=== PATIENT | female | born 1980 | race Caucasian/White ===

== ENCOUNTER 2023-05-03 07:26 | Outpatient (CLI) | payer MEDICAID, SELFPAY ==
--- NOTE | 2023-05-03 07:45 | MR_ITS ---
WS: [id number] MRI BRAIN WITH AND WITHOUT CONTRAST HISTORY: SPEECH DISTURBANCE COMPARISON: None available. TECHNIQUE: Multiplanar imaging performed through the brain with MultiHance 20 ml's IV. No acute infarcts are seen. Tucker-white matter differentiation is well preserved. Minimal T2 and FLAIR signal hyperintensities in the subcortical white matter slightly greater on the LEFT than the RIGHT. No prior infarct. No susceptibility artifacts or prior lacunar infarcts. Ventricles and extra-axial spaces are normal. Clivus and pituitary gland are normal. Visualized posterior fossa and brainstem are also normal. Postcontrast images are negative for masses or vascular malformations. Dural venous sinuses are normal. Paranasal sinuses: Well aerated with no significant disease. Mastoid air cells: Normal. Calvarium and scalp: Normal. MR/MR head wo/w con [id number] IMPRESSION: 1. No acute infarct and no intracranial mass. 2. Very minimal microvascular ischemic disease. 3. No hydrocephalus. 4. No significant paranasal sinus disease.
[2023-05-03] MEDS: gadobenate dimeglumine 20 mL vial IV (09:02)
== END 2023-05-03 07:27 | disposition home or self-care (01) ==
PROVIDERS: PCP Physician Assistant; Visit Provider Physician Assistant
DX: R47.9 Unspecified speech disturbances (principal)
CPT/HCPCS: 70553; A9577

== ENCOUNTER 2023-05-05 12:34 | Outpatient (CLI) | payer MEDICAID, SELFPAY ==
--- NOTE | 2023-05-05 13:02 | MM_ITS ---
WS: [email or web address] BILATERAL 3D TOMOSYNTHESIS DIGITAL SCREENING MAMMOGRAPHY WITH CAD CLINICAL INFORMATION: SCREENING HISTORY: Screening mammogram. No current complaints. COMPARISON: Baseline TECHNIQUE: Bilateral CC and MLO views. FINDINGS: Scattered fibroglandular densities bilaterally. No suspicious focal mass, asymmetry, calcifications, or architectural distortion. No evidence of malignancy. Lucent centered calcification RIGHT breast. A few incidental punctate calcifications. MM/[id number] IMPRESSION: BI-RADS: 2-Benign FOLLOW UP: 1 Year Follow-up Recommend return to annual screening mammography.
== END 2023-05-05 12:35 | disposition home or self-care (01) ==
PROVIDERS: PCP Physician Assistant; Visit Provider Physician Assistant
DX: Z12.31 Encounter for screening mammogram for malignant neoplasm of breast (principal)
CPT/HCPCS: 77063; 77067

== ENCOUNTER → 2023-08-09 11:11 | Outpatient (BNVA) | payer MEDICAID, SELFPAY | PROVIDERS: PCP Physician Assistant; Referring Provider Physician Assistant; Visit Provider Internal Medicine Cardiovascular Disease | DX: R07.9 Chest pain, unspecified (principal) | CPT/HCPCS: 93005 ==

== ENCOUNTER 2023-09-12 17:36 | Outpatient (CLI) | payer MEDICAID, SELFPAY ==
[2023-09-12 20:36] LABS: Cortisol Random 11.47 ug/dL (2.47-19.5); T3 Free 2.5 PG/ML (2.0-4.4)
[2023-09-15 08:29] LABS: Thyroid Peroxidase Antobodies <1 IU/mL (<9)
== END 2023-09-12 17:37 | disposition home or self-care (01) ==
PROVIDERS: PCP Physician Assistant; Visit Provider Specialist
DX: G43.711 Chronic migraine without aura, intractable, with status migrainosus (principal); G47.10 Hypersomnia, unspecified; R00.2 Palpitations; R41.3 Other amnesia; E66.9 Obesity, unspecified
CPT/HCPCS: 36415; 82533; 84439; 84481; 86376

== ENCOUNTER → 2023-09-25 12:16 | Outpatient (BNVA) | payer MEDICAID, SELFPAY | PROVIDERS: PCP Physician Assistant; Visit Provider Internal Medicine Rheumatology | DX: M25.50 Pain in unspecified joint (principal); Z79.899 Other long term (current) drug therapy; M54.50 Low back pain, unspecified; R76.8 Other specified abnormal immunological findings in serum; R29.898 Other symptoms and signs involving the musculoskeletal system; G43.711 Chronic migraine without aura, intractable, with status migrainosus | CPT/HCPCS: 36415; 82085; 82310; 82550; 83735; 84100; 84132 ==

== ENCOUNTER 2023-10-12 11:27 | Outpatient (CLI) | payer MEDICAID, SELFPAY ==
--- NOTE | 2023-10-12 11:38 | XR_ITS ---
WS: [email or web address] Pelvis, AP view, 10/12/2023 Clinical Data: M25.50 - Pain in unspecified joint Comparison: None. Findings: No fractures or dislocations are seen. The SI joints and pubic symphysis are intact. The soft tissues are not remarkable. The hips show acetabular lips. The right hip shows narrowing but the left hip does not., Impression: Minimal osteoarthritis of both hips.
--- NOTE | 2023-10-12 11:38 | XR_ITS ---
WS: [email or web address] Lumbar spine, 3 views, 10/12/2023 Clinical Data: M25.50 - Pain in unspecified joint Comparison: None. Findings: No compression fractures or subluxation is seen. There is disc narrowing at L5-S1. There are small os teophytes in all the lumbar vertebral bodies. The transverse processes and SI joints are normal. Impression: 1. Degenerative disc narrowing at L5-S1. 2. Minimal spurring of all the lumbar vertebral bodies.
== END 2023-10-12 11:28 | disposition home or self-care (01) ==
LOC: RAD 11:30
PROVIDERS: PCP Physician Assistant; Visit Provider Internal Medicine Rheumatology
DX: M51.37 Other intervertebral disc degeneration, lumbosacral region (principal); M48.07 Spinal stenosis, lumbosacral region; M16.0 Bilateral primary osteoarthritis of hip; M25.50 Pain in unspecified joint
CPT/HCPCS: 72100; 72170

== ENCOUNTER 2024-01-25 07:35 | Outpatient (CLI) | payer MEDICAID, SELFPAY ==
--- NOTE | 2024-01-25 08:00 | MR_ITS ---
WS: [email or web address] MRI LUMBAR SPINE WITH CONTRAST TECHNIQUE: Sagittal T1, T2 and STIR imaging. Axial T1 and T2 imaging. Post gadolinium imaging was obt ained. CLINICAL INFORMATION: M54.16 - Radiculopathy, lumbar region COMPARISON: None. FINDINGS: Mild lumbar curve. No acute compression. Segmentation anomaly in the cervical spine on the business analytics director imag ing at C5-6. Mild disc bulging at C4-C5 and C6-C7 with mild central canal stenosis. L1-L2: Mild facet arthropathy. Spinal canal and foramen are patent. L2-L3: No significant disc bulging. Moderate facet arthropathy. Spinal canal and foramen are patent. L3-L4: Mild annular bulging. Moderate facet arthropathy. Spinal canal and foramen are patent. L4-L5: Mild annular bulging. Moderate to advanced facet arthropathy. Slight narrowing of the subartic ular recess. Spinal canal and foramen are patent. L5-S1: Central disc protrusion L5-S1 with slight impingement of traversing S1 nerve roots bilaterally . Slight encroachment on the exiting RIGHT L5 nerve root. LEFT foramen is patent. Mild facet arthropa thy at this level. No abnormal gadolinium enhancement. Visualized pelvic bony structures: Normal. Paravertebral soft tissues: Normal. IMPRESSION: 1. Mild lumbar curve. No acute compression. 2. Central disc protrusion L5-S1 with slight impingement traversing S1 nerve roots bilaterally. Slig ht encroachment on the exiting RIGHT L5 nerve root. 3. Mild annular bulging L4-5 with slight narrowing of the subarticular recess bilaterally. Advanced facet arthropathy at this level. 4. Moderate facet arthropathy L2-L3 L3-L4. 5. Small disc bulges in the cervical spine on the business analytics director imaging at C4-C5 and C6-C7. This could be fu rther evaluated with cervical spine MRI. 6. No other acute findings.
[2024-01-25] MEDS: gadobenate dimeglumine 20 mL vial IV (08:40)
== END 2024-01-25 07:36 | disposition home or self-care (01) ==
LOC: RAD 07:36
PROVIDERS: PCP Physician Assistant; Visit Provider Anesthesiology Pain Medicine
DX: M47.26 Other spondylosis with radiculopathy, lumbar region (principal); M51.17 Intervertebral disc disorders with radiculopathy, lumbosacral region
CPT/HCPCS: 72158; A9577

== ENCOUNTER 2024-01-31 20:00 | Outpatient (CLI) | payer MEDICAID, SELFPAY | END 2024-01-31 20:01 | disposition home or self-care (01) | LOC: SLEEP 02-01 05:55 | PROVIDERS: PCP Physician Assistant; Visit Provider Specialist | DX: G47.33 Obstructive sleep apnea (adult) (pediatric) (principal) | CPT/HCPCS: 95810 ==

== ENCOUNTER → 2024-05-23 08:34 | Outpatient (CLI) | payer MEDICAID, SELFPAY ==
--- NOTE | 2024-05-23 08:37 | MM_ITS ---
WS: [email or web address] BILATERAL 3D TOMOSYNTHESIS DIGITAL SCREENING MAMMOGRAPHY WITH CAD CLINICAL INFORMATION: SCREENING HISTORY: Screening mammogram. No current complaints. COMPARISON: 2022 TECHNIQUE: Bilateral CC and MLO views. FINDINGS: Scattered fibroglandular densities bilaterally. No suspicious focal mass, asymmetry, calcifications, or architectural distortion. No evidence of malignancy. Lucent centered calcification RIGHT breast. A few incidental punctate calcifications. MM/[id number] IMPRESSION: BI-RADS: 2-Benign FOLLOW UP: 1 Year Follow-up Recommend return to annual screening mammography.
== END | disposition home or self-care (01) ==
LOC: RAD 08:33
PROVIDERS: PCP Physician Assistant; Visit Provider Physician Assistant
DX: Z12.31 Encounter for screening mammogram for malignant neoplasm of breast (principal); R92.323 Mammographic fibroglandular density, bilateral breasts; R92.1 Mammographic calcification found on diagnostic imaging of breast
CPT/HCPCS: 77063; 77067

== ENCOUNTER 2024-06-28 06:38 | Outpatient (CLI) | payer MEDICAID, SELFPAY ==
--- NOTE | 2024-06-28 07:15 | USCV_ITS ---
Sully Cartwright Age: 44 Gender: F : 1980 Exam Date: 06/28/2024 07:33 Ordering Phys: Angela Stewart Technologist: Fredi Underwood [place] [facility] [place]: LVH BP: 155 / 104 HR: 74 Rhythm: Sinus Technical Quality: Adequate MEASUREMENTS (Male / Female) Normal Values 2D ECHO LV Diastolic Diameter PLAX 3.7 cm 4.2 - 5.9 / 3.9 - 5.3 cm IVS Diastolic Thickness 1.1 cm 0.6 - 1.0 / 0.6 - 0.9 cm IVS Systolic Thickness 1.3 cm LVPW Diastolic Thickness 1.5 cm 0.6 - 1.0 / 0.6 - 0.9 cm LVPW Systolic Thickness 2.5 cm LVOT Diameter 2.0 cm LV Ejection Fraction 2D Teich 71.2 % LV Ejection Fraction MOD 4C 68.5 % LV Ejection Fraction MOD 2C 60.8 % LV Ejection Fraction 2C AL 60.8 % LA Diameter 3.7 cm RA Systolic Volume 4C AL 44.3 ml RA Systolic Volume 4C MOD 43.6 ml LA Sys Volume AL 49.5 cm cubed LA Sys Volume Index AL 19.1 cm cubed/m squared Aorta at Sinotubular Diameter 2.6 cm IVC Diameter 1.7 cm M-MODE LA Ao Ratio MM 1.5 AV Cusp Separation MM 1.8 cm DOPPLER AV Peak Velocity 130.7 cm/s LVOT Peak Velocity 113.0 cm/s AV Area Cont Eq vti 2.8 cm squared AV Area Cont Eq pk 2.7 cm squared MV Peak Velocity 242.3 cm/s MV Area PHT 5.6 cm squared Mitral E to A Ratio 0.7 TR Peak Velocity 105.0 cm/s TR Peak Gradient 4.4 mmHg TR Mean Velocity 74.0 cm/s TR Mean Gradient 2.5 mmHg TR Velocity Time Integral 24.8 cm PV Peak Velocity 94.0 cm/s RV Ejection Time 0.3 s FINDINGS Left Ventricle Normal left ventricular size, systolic function and wall thickness, with no regional wall motion abnormalities. Estimated ejection fraction 60%.Grade I/IV diastolic dysfunction (abnormal relaxation filling pattern), normal to mildly elevated filling pressures. Right Ventricle The right ventricle is normal in size and function. Right Atrium The right atrium is normal in size. Left Atrium The left atrium is normal in size. Mitral Valve Structurally normal mitral valve without significant stenosis or prolapse. There is trace mitral regurgitation. Aortic Valve Structurally normal aortic valve without significant sclerosis or stenosis. There is no aortic regurgitation. Tricuspid Valve Structurally normal tricuspid valve without significant stenosis or regurgitation. Pulmonary artery systolic pressure is normal. Pulmonic Valve Structurally normal pulmonic valve without significant stenosis. There is no pulmonic regurgitation. Pericardium Normal pericardium without effusion. Aorta Normal ascending aorta dimension. IVC The inferior vena cava appears normal. CONCLUSIONS Normal left ventricular size, systolic function and wall thickness, with no regional wall motion abnormalities. Estimated ejection fraction 60%.Grade I/IV diastolic dysfunction (abnormal relaxation filling pattern), normal to mildly elevated filling pressures. There is no pericardial effusion. No significant valve abnormalities. Right atrial pressure is around 5 mm of mercury. Magy Hammer MD (Electronically Signed) Final Date: 28 June 2024 18:59 S
== END 2024-06-28 06:39 | disposition home or self-care (01) ==
LOC: RAD 06:38
PROVIDERS: PCP Physician Assistant; Visit Provider Nurse Practitioner Family
DX: I51.7 Cardiomegaly (principal)
CPT/HCPCS: 93306

== ENCOUNTER → 2024-07-11 17:42 | Outpatient (BNVA) | payer MEDICAID, SELFPAY | PROVIDERS: PCP Physician Assistant; Visit Provider Nurse Practitioner | DX: R05.9 Cough, unspecified (principal) | CPT/HCPCS: 87426 ==

== ENCOUNTER 2025-02-03 12:29 | Outpatient (CLI) | payer MEDICAID, SELFPAY ==
--- NOTE | 2025-02-03 12:36 | MR_ITS ---
WS: [email or web address] MRI CERVICAL SPINE NONCONTRAST HISTORY: NECK PAIN/FREQUENT FALLS COMPARISON: None available. Technique: Multiplanar, multisequence noncontrast imaging of the cervical spine. Straightening of the normal cervical lordosis. Partial fusion at C5-6 involving the vertebral bodies and the facets. May be congenital. There is a small amount of edema in the articular facets on the RIGHT. No fracture identified. Signal within the cervical cord is normal. Visualized posterior fossa is unremarkable. Craniocervical junction, C1 and C2 relationship, odontoid process and soft tissues are normal. C2-C3: Normal. C3-C4: Large central disc protrusion with mild disc bulging and facet arthritis. Mild central stenosis with disc encroachment upon the ventral thecal sac. C4-C5: Osteophytic ridging, disc bulging and facet arthritis. Central disc protrusion with bilateral foraminal disc osteophyte complexes, LEFT greater than RIGHT. Mild central and RIGHT foraminal stenosis. Moderate LEFT foraminal stenosis. C5-C6: Mild disc bulging and facet arthritis. No high-grade stenosis. C6-C7: Mild annular disc bulging. Large LEFT foraminal disc osteophyte significantly narrowing the LEFT foramen. Mild central and RIGHT foraminal stenosis. Bilateral facet arthropathy. C7-T1: Central disc protrusion. No stenosis. Paraspinal soft tissue are normal. MR/MR cervical spin wo con* [id number] IMPRESSION: 1. Straightening of the normal cervical lordosis. 2. Partial fusion at the C5-6 vertebral bodies and facet joints. Likely congen ital fusion. 3. There is a small amount of edema in the RIGHT facet joints at C5-6. No frac ture identified. 4. Large central disc protrusion at C3-4. Mild central stenosis. 5. C4-5: Central disc protrusion with bilateral foraminal disc osteophyte comp lexes. Moderate LEFT foraminal stenosis. Mild central and RIGHT foraminal steno sis. 6. C6-7: Large LEFT foraminal disc osteophyte. Significant LEFT foraminal sten osis. Mild RIGHT foraminal and central stenosis. 7. C7-T1: Small central disc protrusion.
== END 2025-02-03 12:30 | disposition home or self-care (01) ==
PROVIDERS: PCP Family Medicine; Visit Provider Specialist
DX: M48.02 Spinal stenosis, cervical region (principal); Z91.81 History of falling; R93.7 Abnormal findings on diagnostic imaging of other parts of musculoskeletal system; M50.21 Other cervical disc displacement, high cervical region; M50.221 Other cervical disc displacement at C4-C5 level; M25.78 Osteophyte, vertebrae; M50.23 Other cervical disc displacement, cervicothoracic region; M47.892 Other spondylosis, cervical region; M50.321 Other cervical disc degeneration at C4-C5 level; M50.322 Other cervical disc degeneration at C5-C6 level; M50.323 Other cervical disc degeneration at C6-C7 level
CPT/HCPCS: 72141

== ENCOUNTER → 2025-02-05 08:42 | Outpatient (BNVA) | payer MEDICAID, SELFPAY | PROVIDERS: PCP Family Medicine; Visit Provider Physician Assistant | DX: G56.03 Carpal tunnel syndrome, bilateral upper limbs (principal) | CPT/HCPCS: 73110 ==

== ENCOUNTER 2025-02-21 05:14 | Day surgery (SDC) | payer MEDICAID, SELFPAY ==
[2025-02-21] VITALS (7 sets, daily range): BP systolic 110–155; BP diastolic 59–95; PULSE 72–95; RESP 16–20; TEMP 36.1–36.2; O2SAT 92–98; BMI 45.2
[2025-02-21] MEDS: ketorolac 30 mg/mL INJ IVP (06:13)
[2025-02-21] MEDS: sodium chloride 0.9% 1,000 ML 30 ML IV (06:14)
[2025-02-21] MEDS: scopolamine 1 mg PATCH 1 PATCH TRANSDERMA (06:14)
[2025-02-21] MEDS: acetaminophen 1,000 MG/100 ML PIGGYBACK 400 MG IV (06:15)
[2025-02-21 06:35] LABS: Glucose Point of Care 134 mg/dL (70-110)
--- NOTE | 2025-02-21 06:54 | W.PM.OPSUD ---
Surgery/Procedure H&P Update DATE OF PROCEDURE: February 21, 2025 DATE H&P PERFORMED: 02/05/25 H&P UPDATE INFORMATION: I have reviewed H&P completed within last 30 days, I have examined patient prior to procedure and No changes to prior documentation PREOP DIAGNOSIS: Right carpal tunnel syndrome PRIMARY INDICATION FOR PROCEDURE: Right carpal tunnel syndrome PLANNED PROCEDURE: Operation Date: 02/21/25 07:00 Proposed Procedures p Right Carpal Tunnel Release(Right) - Sloan Hernandez DO
[2025-02-21] MEDS: ceFAZolin 3,000 MG in sodium chloride 0.9% (plus) 100 ML 200 MG IV (07:00)
--- NOTE | 2025-02-21 07:04 | ANES.PREANE2 ---
Pre-Anesthetic Assessment Height/Weight: Height 1.7 m Weight 131.088 kg Temp Pulse Resp BP Pulse Ox O2 Del Method 97.0 F L 95 17 138/91 98 Room Air 02/21/25 06:05 02/21/25 06:05 02/21/25 06:05 02/21/25 06:05 02/21/25 06:05 02/21/25 06:05 Preop Diagnosis: Right carpal tunnel syndrome Operation Date: 02/21/25 07:00 Proposed Procedures p Right Carpal Tunnel Release(Right) - Sloan Hernandez DO Last intake: Intake Last Liquid Date 02/20/25 Last Liquid Time 19:00 Last Solid Date 02/20/25 Last Solid Time 17:00 Social No alcohol and No tobacco Exam alert, oriented x 3 and clear to auscultation bilaterally (No cardiac abnormality ) Airway Submandibular: within normal limits Cervical ROM: within normal limits Mallampati: Class II Metabolic Diabetes Mellitus and Morbid Obesity Anesthetic Plan ASA status: 3 Anesthesia: MAC Medications/Allergies Home Medications ?Medication ?Instructions ?Recorded ?Confirmed ?Last Taken ?Type albuterol sulfate 90 mcg/actuation 2 inh inhalation Q4H PRN Shortness 08/09/23 02/21/25 Unknown History breath activated powder inhaler Of Breath blood sugar diagnostic (OneTouch 08/09/23 02/05/25 Unknown History Verio test strips) blood-glucose meter (OneTouch 08/09/23 02/05/25 Unknown History Ultra2 Meter) cetirizine 10 mg tablet 10 mg PO DAILY 08/09/23 02/21/25 02/20/25 History fluticasone propionate 50 2 spray intranasal DAILY 08/09/23 02/21/25 02/20/25 History mcg/actuation nasal spray,suspension (Flonase Allergy Relief) hydrochlorothiazide 25 mg tablet 25 mg PO DAILY 08/09/23 02/21/25 02/20/25 History inhalational spacing device (Space 08/09/23 02/05/25 Unknown History Chamber) losartan 50 mg tablet 50 mg PO DAILY 08/09/23 02/21/25 02/20/25 History meloxicam 15 mg tablet 15 mg PO DAILY 08/09/23 02/21/25 02/13/25 History metformin 1,000 mg tablet 1,000 mg PO BID 0902/21/25 02/20/25 History pioglitazone 30 mg tablet (Actos) 30 mg PO DAILY 08/09/23 02/21/25 02/20/25 History sertraline 50 mg tablet 50 mg PO DAILY 08/09/23 02/21/25 02/20/25 History montelukast 10 mg PO DAILY 03/11/24 02/21/25 02/20/25 History budesonide-formoterol HFA 160 1 inh inhalation BID 08/13/24 02/21/25 Unknown History mcg-4.5 mcg/actuation aerosol inhaler magnesium 500 mg PO DAILY 08/13/24 02/21/25 02/20/25 History galcanezumab-gnlm 120 mg/mL 120 mg SUBCUT ONCE #1 mL 12/23/24 02/21/25 01/24/25 Rx subcutaneous syringe (Emgality) dulaglutide 1.5 mg/0.5 mL See Rx Instructions .Route .COMPLEX 01/09/25 02/21/25 02/12/25 History subcutaneous pen injector azelastine 137 mcg (0.1 %) nasal 2 spray intranasal DAILY 02/20/25 02/21/25 02/20/25 History spray famotidine 20 mg tablet 20 mg PO BID 02/20/25 02/21/25 02/21/25 History ropinirole 0.5 mg tablet 0.5 mg PO PRN PRN Muscle Spasm 02/20/25 02/21/25 Unknown History Allergies Allergy/AdvReac Type Severity Reaction Status Date / Time Latex, Natural Rubber Allergy Unknown Unknown Verified 02/05/25 08:47 Current Medications Generic Name Dose Route Start Last Admin Trade Name Freq PRN Reason Stop Dose Admin Sodium Chloride 1,000 mls @ 30 mls/hr 02/21/25 06:00 02/21/25 06:14 Sodium Chloride 0.9% IV 02/22/25 05:59 30 mls/hr .Q24H NIMESH Administration PFSH Anesthesia Medical History Lower extremity weakness Positive CORY (antinuclear antibody) Type 2 diabetes mellitus without complication Muscle weakness (generalized) Chest pain Family History Grandmother Lung disease Chronic kidney disease (CKD) Diabetes Father Hypertension Hyperlipidemia Diabetes Sister Cancer Chronic kidney disease (CKD) Diabetes Mother Diabetes Other Stroke Denies family history of CAD (coronary artery disease) Clotting disorder Dementia Psychiatric illness Suicide Anesthesia complication Bleeding disorder Family history of premature coronary artery disease Social History Smoking and tobacco/nicotine status: former use of tobacco/nicotine Data Anesthesia Cardiac Studies: Echocardiogram 06/28/24 Cardiac Event Monitor 08/16/23
[2025-02-21] MEDS: ROPivacaine 0.5% SDV 30 mL 150 MG INJECTION (07:20)
[2025-02-21] MEDS: lidocaine-epi 1% 20 mL INJ INJECTION (07:20)
--- NOTE | 2025-02-21 07:42 | W.PM.BPON ---
Date of Procedure:02/21/25 Surgeon: Sloan Hernandez DO Traffic Control Flagger(s): None Procedure(s) performed: Right carpal tunnel release Findings of the procedure(s): Patient underwent procedure as planned without issues or complications Estimated blood loss: 2 mL Specimen(s) removed: None Post-operative diagnosis: Right carpal tunnel syndrome
--- NOTE | 2025-02-21 07:43 | PM.OP ---
Operative Report Date of procedure: February 21, 2025 Surgeon: Sloan Hernandez DO Procedure: Preop Diagnosis: Right Carpal Tunnel Syndrome Post-op diagnosis: Same Procedure done: 1. Right carpal tunnel release Surgeon: Sloan Hernandez DO Anesthesia: MAC (Local) Estimated blood loss: 2 mL Tourniquet time 7 minutes IV fluids: See anesthesia record Complications: None Findings: See operative report narrative Condition: stable Disposition: same day Brief History: Patient is a pleasant 44 year-old female with right carpal tunnel syndrome. Patient has been worked up in the outpatient setting findings and physical examination consistent with this. Patient nerve conduction studies consistent with carpal tunnel syndrome. We detailed out patient's risk benefits complication alternatives with surgical and nonsurgical treatment options. Through shared decision making, patient agrees to proceed with surgical intervention of the right carpal tunnel release . Patient understands and agrees with current plan. All questions answered. Patient elects to proceed with surgical intervention with carpal tunnel release. Procedure: Patient seen and evaluated in the preoperative holding area. Consent was reviewed and signed with patient. Correct extremity was marked. Patient was seen evaluated by the anesthesia department once cleared for surgery was brought back to the operative suite. Patient was kept on [facility] in supine position all bony prominences were well-padded patient properly secured to the bed. Right upper extremity was then placed onto an armboard. A nonsterile tourniquet was applied to the Right upper arm. Patient underwent anesthesia per the anesthesia department. Patient's Right upper extremity was then prepped and draped in standard orthopedic fashion. Final timeout performed. Patient received appropriate preoperative antibiotics. Under sterile aseptic technique patient received local anesthesia over the preplanned carpal tunnel incision site. Esmarch was used to exsanguinate the Right upper extremity and tourniquet was insufflated to 250 mmHg. A standard mini open Right carpal tunnel incision was made. Starting distally at Conn's cardinal line in line with the fourth ray extending proximally distal to the wrist crease centered over the carpal tunnel. Sharp scalpel incision was made through skin and subcutaneous tissue. Self-retaining retractor was placed and the palmar fascia was identified. This was then split longitudinally and direct visualization of the transverse carpal ligament was then made. I then utilizing scalpel feathered through the transverse carpal ligament until I entered the floor of the transverse carpal tunnel ligament into the carpal tunnel. Next I switched to dissection scissors and completed my release of the transverse carpal ligament distally with care to protect the recurrent motor branch. I completely released into the palmar fat and until no entrapment was noted distally. Care was made to protect the superficial palmar arch during my distal dissection. Next I utilized a nasal speculum placed on top of the transverse carpal ligament and utilize this to retract the subcutaneous fat and tissue and under direct loupe magnification was able to identify the transverse carpal ligament. Next I then protected the contents of the carpal tunnel and subsequently utilizing dissection scissors under loupe magnification completely released the transverse carpal ligament proximally into the antebrachial fascia. Care was made to protect the palmar cutaneous branch by keeping my scissors curved ulnarly. Once completely released, I then placed my [place] and had appropriate decompression of the carpal tunnel proximally as well as distally. I then inspected the contents of the carpal tunnel which showed an hourglass shape of the median nerve showing its compression. No masses were noted. Tendons appeared healthy. Wound was then thoroughly irrigated. Tourniquet deflated. Hemostasis satisfactory with bipolar electrocautery. I then closed the incision with interrupted nylon stitches. Xeroform 4 x 4's and a bulky soft dressing was applied. Patient was then awakened from anesthesia and taken to PACU in stable condition. Patient tolerated procedure without complications. Disposition: Patient taken to PACU in stable condition recovering well. Dressing clean dry and intact. Patient will receive appropriate discharge instructions as well as pain medication postoperatively. Patient to follow-up with me in the office in 2 weeks. They understand they may be weightbearing as tolerated to the right hand. Patient should keep incision clean dry and intact. Patient understands if any questions or concerns may contact the office.
--- NOTE | 2025-02-21 11:33 | ANE.PACU2 ---
Inpatient post-anesthesia follow up: Vital signs: Temperature 97.0 F Pulse Rate 72 Respiratory Rate 18 Blood Pressure 118/74 Pulse Oximetry 97 Oxygen Delivery Me thod Room Air Oxygen Flow Rate Fraction of Inspir ed Oxygen Hydration adequate: Yes Nausea and vomiting: No Pain level: 3 Mental status: Baseline
== END 2025-02-21 08:31 | disposition home or self-care (01) ==
PROVIDERS: PCP Family Medicine; Visit Provider Student in an Organized Health Care Education/Training Program
PROC: (CPT 64721; principal; 2025-02-21 07:00)
DX: G56.03 Carpal tunnel syndrome, bilateral upper limbs (principal); E11.9 Type 2 diabetes mellitus without complications; E66.01 Morbid (severe) obesity due to excess calories; Z68.42 Body mass index [BMI] 45.0-49.9, adult; Z79.899 Other long term (current) drug therapy; Z79.84 Long term (current) use of oral hypoglycemic drugs; Z79.85 Long-term (current) use of injectable non-insulin antidiabetic drugs; Z91.040 Latex allergy status; Z87.891 Personal history of nicotine dependence
CPT/HCPCS: 64721; 36416; 82962; J0131; J0690; J1885; J2250; J2704; J2795; J3010; J7030; J9999

== ENCOUNTER 2025-03-31 07:08 | Outpatient (CLI) | payer MEDICAID, SELFPAY ==
--- NOTE | 2025-03-31 07:45 | MR_ITS ---
WS: [email or web address] MRI BRAIN WITH AND WITHOUT CONTRAST HISTORY: G43.711 - Chronic migraine without aura, intractable, wit... COMPARISON: 05/03/2023 TECHNIQUE: Multiplanar imaging performed through the brain with MultiHance 20 ml's IV. No acute infarcts are seen. Tucker-white matter differentiation is well preserved. Very minimal small vessel ischemic type changes in the subcortical white matter. There are a few new subcortical foci since the prior study. No large infarct. No hemorrhage. Very slight cerebellar atrophy. No significant hippocampal atrophy. No susceptibility artifacts or prior lacunar infarcts. Ventricles and extra-axial spaces are normal. Clivus and pituitary gland are normal. No inferior displacement of the cerebellar tonsils. Postcontrast images are negative for masses or vascular malformations. Dural venous sinuses are normal. Paranasal sinuses: Small mucous retention cyst in the floor of the RIGHT maxillary sinus. No air-fluid levels. Mastoid air cells: Normal. Calvarium and scalp: Normal. MR/MR head wo/w con [id number] IMPRESSION: 1. No acute infarcts or hemorrhage. 2. Very minimal progression of T2 and FLAIR signal hyperintensities in the sub cortical white matter. Not unusual for the patient's age. This can be noted wit h small vessel disease, hypertension, smoking and migraines. 3. No enhancing masses or vascular malformations. 4. Normal hippocampal formations.
[2025-03-31] MEDS: gadobenate dimeglumine 20 mL vial IV (07:53)
== END 2025-03-31 07:09 | disposition home or self-care (01) ==
PROVIDERS: PCP Physician Assistant; Visit Provider Specialist
DX: G43.711 Chronic migraine without aura, intractable, with status migrainosus (principal); R41.3 Other amnesia; M27.40 Unspecified cyst of jaw
CPT/HCPCS: 70553; A9577

== ENCOUNTER 2025-04-04 05:59 | Day surgery (SDC) | payer MEDICAID, SELFPAY ==
[2025-04-04] VITALS (7 sets, daily range): BP systolic 129–142; BP diastolic 66–99; PULSE 69–82; RESP 16; TEMP 35.9–36.4; O2SAT 92–96; BMI 44.8
[2025-04-04 06:18] LABS: OR HCG Qualitative Urine Negative (Negative)
[2025-04-04 06:39] LABS: Glucose Point of Care 139 mg/dL (70-110)
[2025-04-04] MEDS: sodium chloride 0.9% 1,000 ML 30 ML IV (06:39)
[2025-04-04] MEDS: ketorolac 30 mg/mL INJ IVP (06:39)
[2025-04-04] MEDS: acetaminophen 1,000 MG/100 ML PIGGYBACK 400 MG IV (06:40)
[2025-04-04] MEDS: scopolamine 1 mg PATCH 1 PATCH TRANSDERMA (06:41)
--- NOTE | 2025-04-04 07:14 | ANES.PREANE2 ---
Pre-Anesthetic Assessment Height/Weight: Height 1.7 m Weight 129.727 kg Temp Pulse Resp BP Pulse Ox O2 Del Method 96.6 F L 80 16 138/99 96 Room Air 04/04/25 06:10 04/04/25 06:10 04/04/25 06:10 04/04/25 06:41 04/04/25 06:10 04/04/25 06:10 Operation Date: 04/04/25 08:05 Proposed Procedures p Carpal Tunnel Release(Left) - Sloan Izard, DO Familial anesthetic complications: None Was Beta Lina taken within 24 hours: N/A Was Clonidine taken within 24 hours: N/A Last intake: Intake Last Liquid Date 04/03/25 Last Liquid Time 20:00 Last Solid Date 04/03/25 Last Solid Time 18:30 Social No alcohol and No tobacco Exam alert, oriented x 3, clear to auscultation bilaterally and regular rate & rhythm Airway Mallampati: Class III Pulmonary Sleep Apnea CV/HEM Hypertension Metabolic Diabetes Mellitus and Morbid Obesity Anesthetic Plan ASA status: 3 Anesthesia: MAC Risk of > 500 ml blood loss (7ml/kg in children): No Medications/Allergies Home Medications ?Medication ?Instructions ?Recorded ?Confirmed ?Last Taken ?Type albuterol sulfate 90 mcg/actuation 2 inh inhalation Q4H PRN Shortness 08/09/23 04/02/25 Unknown History breath activated powder inhaler Of Breath blood sugar diagnostic (OneTouch 08/09/23 03/18/25 Unknown History Verio test strips) blood-glucose meter (OneTouch 08/09/23 03/18/25 Unknown History Ultra2 Meter) cetirizine 10 mg tablet 10 mg PO DAILY 08/09/23 04/02/25 04/02/25 History fluticasone propionate 50 2 spray intranasal DAILY 08/09/23 04/02/25 04/02/25 History mcg/actuation nasal spray,suspension (Flonase Allergy Relief) hydrochlorothiazide 25 mg tablet 25 mg PO DAILY 08/09/23 04/02/25 04/02/25 History inhalational spacing device (Space 08/09/23 03/18/25 Unknown History Chamber) losartan 50 mg tablet 50 mg PO DAILY 08/09/23 04/02/25 04/02/25 History meloxicam 15 mg tablet 15 mg PO DAILY 0904/02/25 03/27/25 History metformin 1,000 mg tablet 1,000 mg PO BID 08/09/23 04/02/25 04/02/25 History pioglitazone 30 mg tablet (Actos) 30 mg PO DAILY 08/09/23 04/02/25 04/02/25 History sertraline 50 mg tablet 50 mg PO DAILY 08/09/23 04/02/25 04/02/25 History montelukast 10 mg PO DAILY 03/11/24 04/02/25 04/01/25 History budesonide-formoterol HFA 160 1 inh inhalation BID 08/13/24 04/02/25 Unknown History mcg-4.5 mcg/actuation aerosol inhaler (Symbicort) magnesium 500 mg PO DAILY 08/13/24 04/02/25 04/02/25 History galcanezumab-gnlm 120 mg/mL 120 mg SUBCUT ONCE #1 mL 12/23/24 04/02/25 03/25/25 Rx subcutaneous syringe (Emgality) dulaglutide 1.5 mg/0.5 mL See Rx Instructions .Route .COMPLEX 01/09/25 04/02/25 03/27/25 History subcutaneous pen injector ([facility]) azelastine 137 mcg (0.1 %) nasal 2 spray intranasal DAILY 02/20/25 04/02/25 04/02/25 History spray famotidine 20 mg tablet 20 mg PO BID 02/20/25 04/02/25 04/02/25 History ropinirole 0.5 mg tablet 0.5 mg PO PRN PRN Muscle Spasm 02/20/25 04/02/25 Unknown History Allergies Allergy/AdvReac Type Severity Reaction Status Date / Time Latex, Natural Rubber Allergy Unknown Unknown Verified 04/02/25 15:45 Current Medications Generic Name Dose Route Start Last Admin Trade Name Freq PRN Reason Stop Dose Admin Sodium Chloride 1,000 mls @ 30 mls/hr 04/04/25 05:45 04/04/25 06:39 Sodium Chloride 0.9% IV 04/05/25 05:44 30 mls/hr .Q24H NIMESH Administration PFSH Anesthesia Medical History Lower extremity weakness Positive CORY (antinuclear antibody) Type 2 diabetes mellitus without complication Muscle weakness (generalized) Chest pain Family History Grandmother Lung disease Chronic kidney disease (CKD) Diabetes Father Hypertension Hyperlipidemia Diabetes Sister Cancer Chronic kidney disease (CKD) Diabetes Mother Diabetes Other Stroke Denies family history of CAD (coronary artery disease) Clotting disorder Dementia Psychiatric illness Suicide Anesthesia complication Bleeding disorder Family history of premature coronary artery disease Social History Smoking and tobacco/nicotine status: former use of tobacco/nicotine Data Anesthesia Cardiac Studies: Echocardiogram 06/28/24 Cardiac Event Monitor 08/16/23
--- NOTE | 2025-04-04 07:39 | W.PM.OPSUD ---
Surgery/Procedure H&P Update DATE OF PROCEDURE: April 04, 2025 DATE H&P PERFORMED: 03/07/25 H&P UPDATE INFORMATION: I have reviewed H&P completed within last 30 days, I have examined patient prior to procedure and No changes to prior documentation PREOP DIAGNOSIS: Left carpal tunnel syndrome PRIMARY INDICATION FOR PROCEDURE: Left carpal tunnel syndrome PLANNED PROCEDURE: Operation Date: 04/04/25 08:05 Proposed Procedures p Carpal Tunnel Release(Left) - Sloan Hernandez DO
[2025-04-04] MEDS: ceFAZolin 2,000 MG in sodium chloride 0.9% (plus) 50 ML 100 MG IV (07:44)
[2025-04-04] MEDS: ROPivacaine 0.5% SDV 30 mL 30 MG INJECTION (07:54)
[2025-04-04] MEDS: lidocaine-epi 1% PF 1:200,000 30 mL SDV 5 ML INJECTION (07:54)
--- NOTE | 2025-04-04 08:14 | W.PM.BPON ---
Date of Procedure: 04/04/2025 Surgeon: Sloan Hernandez DO Automotive Technician(s): None Procedure(s) performed: Left carpal tunnel release Findings of the procedure(s): Procedure went as planned without issues or complications Estimated blood loss: 2 mL Specimen(s) removed: None Post-operative diagnosis: Left carpal tunnel syndrome
--- NOTE | 2025-04-04 08:15 | P.OP_ITS ---
Operative Report Date of procedure: April 04, 2025 Surgeon: Sloan Hernandez DO Procedure: Preop Diagnosis: Left Carpal Tunnel Syndrome Post-op diagnosis: Same Procedure done: 1. Left carpal tunnel release Surgeon: Sloan Hernandez DO Anesthesia: MAC (Local) Estimated blood loss: 2 mL Tourniquet time 5 minutes IV fluids: See anesthesia record Complications: None Findings: See operative report narrative Condition: stable Disposition: same day Brief History: Patient is a pleasant 44 year-old female with left carpal tunnel syndrome. Patient has been worked up in the outpatient setting findings and physical examination consistent with this. Patient nerve conduction studies consistent with carpal tunnel syndrome. We detailed out patient's risk benefits complication alternatives with surgical and nonsurgical treatment options. Through shared decision making, patient agrees to proceed with surgical intervention of the left carpal tunnel release . Patient understands and agrees with current plan. All questions answered. Patient elects to proceed with surgical intervention with carpal tunnel release. Procedure: Patient seen and evaluated in the preoperative holding area. Consent was reviewed and signed with patient. Correct extremity was marked. Patient was seen evaluated by the anesthesia department once cleared for surgery was brought back to the operative suite. Patient was kept on [facility] in supine position all bony prominences were well-padded patient properly secured to the bed. Left upper extremity was then placed onto an armboard. A nonsterile tourniquet was applied to the left upper arm. Patient underwent anesthesia per the anesthesia department. Patient's left upper extremity was then prepped and draped in standard orthopedic fashion. Final timeout performed. Patient received appropriate preoperative antibiotics. Under sterile aseptic technique patient received local anesthesia over the preplanned carpal tunnel incision site. Esmarch was used to exsanguinate the left upper extremity and tourniquet was insufflated to 250 mmHg. A standard mini open left carpal tunnel incision was made. Starting distally at Conn's cardinal line in line with the fourth ray extending proximally distal to the wrist crease centered over the carpal tunnel. Sharp scalpel incision was made through skin and subcutaneous tissue. Self-retaining retractor was placed and the palmar fascia was identified. This was then split longitudinally and direct visualization of the transverse carpal ligament was then made. I then utilizing scalpel feathered through the transverse carpal ligament until I entered the floor of the transverse carpal tunnel ligament into the carpal tunnel. Next I switched to dissection scissors and completed my release of the transverse carpal ligament distally with care to protect the recurrent motor branch. I completely released into the palmar fat and until no entrapment was noted distally. Care was made to protect the superficial palmar arch during my distal dissection. Next, nasal speculum placed proximally for retraction of soft tissue on top of the Transverse carpal ligament. Next the contents of the carpal tunnel where protected and and subsequently utilizing dissection scissors under loupe magnification completely released the transverse carpal ligament proximally into the antebrachial fascia. Care was made to protect the palmar cutaneous branch by keeping my scissors curved ulnarly. Once completely released, I then placed my [place] and had appropriate decompression of the carpal tunnel proximally as well as distally. I then inspected the contents of the carpal tunnel which showed an hourglass shape of the median nerve showing its compression. No masses were noted. Tendons appeared healthy. Wound was then thoroughly irrigated. Tourniquet deflated. Hemostasis satisfactory with bipolar electrocautery. I then closed the incision with interrupted nylon stitches. Xeroform 4 x 4's and a bulky soft dressing was applied to the left upper extremity. Patient was then awakened from anesthesia and taken to PACU in stable condition. Patient tolerated procedure without complications. Disposition: Patient taken to PACU in stable condition recovering well. Dressing clean dry and intact. Patient will receive appropriate discharge instructions as well as pain medication postoperatively. Patient to follow-up with me in the office in 2 weeks. They understand they may be weightbearing as tolerated to the left hand. Patient should keep incision clean dry and intact. Patient understands if any questions or concerns may contact the office.
--- NOTE | 2025-04-04 09:30 | ANE.PACU2 ---
Inpatient post-anesthesia follow up: Airway intact: Yes Vital signs: Temperature 97.6 F Pulse Rate 69 Respiratory Rate 16 Blood Pressure 142/85 Pulse Oximetry 95 Oxygen Delivery Me thod Room Air Oxygen Flow Rate Fraction of Inspir ed Oxygen Hydration adequate: Yes Nausea and vomiting: No Pain level: 1 Mental status: Baseline
== END 2025-04-04 09:34 | disposition home or self-care (01) ==
PROVIDERS: Anesthesiology; PCP Nurse Practitioner Family; Visit Provider Student in an Organized Health Care Education/Training Program
PROC: (CPT 64721; principal; 2025-04-04 07:55)
DX: G56.02 Carpal tunnel syndrome, left upper limb (principal); G47.30 Sleep apnea, unspecified; I10 Essential (primary) hypertension; E11.9 Type 2 diabetes mellitus without complications; E66.01 Morbid (severe) obesity due to excess calories; Z68.41 Body mass index [BMI] 40.0-44.9, adult; Z79.84 Long term (current) use of oral hypoglycemic drugs; Z87.891 Personal history of nicotine dependence
CPT/HCPCS: 64721; 36416; 81025; 82962; J0131; J0690; J1885; J2250; J2704; J2795; J3010; J7030; J9999

== ENCOUNTER 2025-04-15 08:58 | Outpatient (CLI) | payer MEDICAID, SELFPAY ==
--- NOTE | 2025-04-15 09:30 | FL_ITS ---
WS: [id number] LUMBAR PUNCTURE UNDER FLUOROSCOPY: OBTAIN CSF FOR ANALYSIS HISTORY: G62.9 - Polyneuropathy, unspecified COMPARISON: None available. FLUOROSCOPY TIME: 1min [id number] # of spot films: 1 Procedure, complications, and risk and benefits explained to the patient. Consent was obtained. Recent laboratory work and medication are reviewed prior to procedure. Skin over the lumbar is cleansed with ChloraPrep and anesthetized with 1% buffered lidocaine. Access into the thecal sac is achieved. CSF is removed in a sterile manner and placed in the sterile tubes. Approximately 14 ml are removed without difficulty. No evidence for elevated opening pressure. No complications are encountered. CSF this into the laboratory for analysis as requested. FL/FL guided lumbarpunc dx* [id number] IMPRESSION: Uncomplicated lumbar puncture for CSF. CSF collected for analysis as requested.
[2025-04-15 10:48] LABS: CSF Mononuclear # 0.001 10^3/uL (50-90); Mononuclear WBC CSF % 50 % (50-90); Polynuclear Cells ,CSF # 0.001 10^3/uL (0-10); Polynuclear WBC CSF % 50 % (0-10); Red Blood Cell CSF 0 10^3/uL (0-0); White Blood Cell CSF 2 /uL (0-5)
[2025-04-15 11:01] LABS: Appearance CSF CLEAR (CLEAR); Color CSF COLORLESS (COLORLESS); Glucose CSF 74 mg/dL (40-70); PATH Referral YES; Pathology Referral Yes; Total Protein CSF 35 mg/dL (15-45)
[2025-04-15 11:48] LABS: Estmated Average Glucose 163; Hemoglobin A1C 7.3 % (4.0-6.0)
[2025-04-15 12:10] LABS: Vitamin B12 553 pg/mL (232-1245)
[2025-04-18 16:54] LABS: IgG CSF 2.5 mg/dL (0.8-7.7); IgG Index , CSF 0.36 (<0.70); Immunoglobulin G 1130 mg/dL (600-1640); Synthesis Rate IgG, CSF -7.3 mg/24 h (-9.9 TO +3.3)
[2025-04-18 22:44] LABS: Oligoclonal Bands IGG, CSF ABSENT (ABSENT)
[2025-04-18 23:29] LABS: VDRL on CSF NON-REACTIVE
[2025-04-19 16:55] LABS: Immunofixation Serum Normal pattern.
== END 2025-04-15 08:59 | disposition home or self-care (01) ==
PROVIDERS: PCP Nurse Practitioner Family; Visit Provider Specialist
DX: G62.9 Polyneuropathy, unspecified (principal); R29.898 Other symptoms and signs involving the musculoskeletal system; G62.89 Other specified polyneuropathies
CPT/HCPCS: 36415; 62328; 80503; 82040; 82042; 82607; 82784; 82945; 83036; 83520; 83916; 84157; 86334; 86592; 87070; 87075; 87205; 89050

== ENCOUNTER 2025-05-02 11:03 | Emergency (ER) | payer MEDICAID, SELFPAY ==
[2025-05-02 11:11] VITALS: BP 167/96; PULSE 97; RESP 16; TEMP 36.6; O2SAT 99
--- NOTE | 2025-05-02 11:30 | W.ED.ABDPA2 ---
HPI - Abdominal Pain General: Chief Complaint: Abdominal Pain Stated Complaint: stabbing pains right side abdominal/back Time Seen by Provider: 05/02/25 11:25 History of Present Illness: 44-year-old female presents emergency room complaining of abdominal pain and right flank pain. Patient has a history of nephrolithiasis. She has noticed some mild hematuria no fever sweats or chills. Nauseous but not vomiting Associated Symptoms: Denies chills, dysuria and fever(s) Related Data Home Medications ?Medication ?Instructions ?Recorded ?Confirmed albuterol sulfate 90 mcg/actuation 2 inh inhalation Q4H PRN Shortness 08/09/23 04/02/25 breath activated powder inhaler Of Breath blood sugar diagnostic (OneTouch 08/09/23 03/18/25 Verio test strips) blood-glucose meter (OneTouch 08/09/23 03/18/25 Ultra2 Meter) cetirizine 10 mg tablet 10 mg PO DAILY 08/09/23 04/02/25 fluticasone propionate 50 2 spray intranasal DAILY 08/09/23 04/02/25 mcg/actuation nasal spray,suspension (Flonase Allergy Relief) hydrochlorothiazide 25 mg tablet 25 mg PO DAILY 08/09/23 04/02/25 inhalational spacing device (Space 08/09/23 03/18/25 Chamber) losartan 50 mg tablet 50 mg PO DAILY 08/09/23 04/02/25 meloxicam 15 mg tablet 15 mg PO DAILY 08/09/23 04/02/25 metformin 1,000 mg tablet 1,000 mg PO BID 08/09/23 04/02/25 pioglitazone 30 mg tablet (Actos) 30 mg PO DAILY 08/09/23 04/02/25 sertraline 50 mg tablet 50 mg PO DAILY 08/09/23 04/02/25 montelukast 10 mg PO DAILY 03/11/24 04/02/25 budesonide-formoterol HFA 160 1 inh inhalation BID 08/13/24 04/02/25 mcg-4.5 mcg/actuation aerosol inhaler (Symbicort) magnesium 500 mg PO DAILY 08/13/24 04/02/25 dulaglutide 1.5 mg/0.5 mL See Rx Instructions .Route .COMPLEX 01/09/25 04/02/25 subcutaneous pen injector (Trulicity) azelastine 137 mcg (0.1 %) nasal 2 spray intranasal DAILY 02/20/25 04/02/25 spray famotidine 20 mg tablet 20 mg PO BID 02/20/25 04/02/25 ropinirole 0.5 mg tablet 0.5 mg PO PRN PRN Muscle Spasm 02/20/25 04/02/25 Previous Rx's ?Medication ?Instructions ?Recorded galcanezumab-gnlm 120 mg/mL 120 mg SUBCUT ONCE #1 mL 12/23/24 subcutaneous syringe (Emgality) cefdinir 300 mg capsule 300 mg PO BID 10 days #20 caps 05/02/25 hydrocodone 5 mg-acetaminophen 325 1 tab PO Q6H PRN pain #15 tabs 05/02/25 mg tablet Allergies Allergy/AdvReac Type Severity Reaction Status Date / Time Latex, Natural Rubber Allergy Unknown Unknown Verified 04/18/25 08:33 Review of Systems Const: Denies: fever(s) or chills Card: Denies: chest pain Resp: Denies: dyspnea GI: Denies: abdominal pain : Reports: flank pain (Right); Denies: dysuria, urinary frequency or urinary urgency Musc: Denies: neck pain or back pain Skin/Breast: Denies: rash PFSH ED PFSH: Medical History Lower extremity weakness Positive CORY (antinuclear antibody) Type 2 diabetes mellitus without complication Muscle weakness (generalized) Chest pain Family History Grandmother Lung disease Chronic kidney disease (CKD) Diabetes Father Hypertension Hyperlipidemia Diabetes Sister Cancer Chronic kidney disease (CKD) Diabetes Mother Diabetes Other Stroke Denies family history of CAD (coronary artery disease) Clotting disorder Dementia Psychiatric illness Suicide Anesthesia complication Bleeding disorder Family history of premature coronary artery disease Social History Smoking and tobacco/nicotine status: never used tobacco/nicotine Physical Exam Const: GENERAL APPEARANCE: cooperative ORIENTATION/CONSCIOUSNESS: Yes awake, Yes oriented to person, Yes oriented to place and Yes oriented to time HENMT: COMMON NORMALS: normocephalic, atraumatic and hearing grossly normal bilaterally HEAD & SCALP: normocephalic and atraumatic Resp: COMMON NORMALS: normal respiratory effort, No retractions, No use of accessory muscles and clear to auscultation bilaterally AUSCULTATION: clear to auscultation bilaterally Cardio: COMMON NORMALS: regular rate, regular rhythm and No murmurs present (Cardio) RATE: regular rate RHYTHM: regular rhythm GI: COMMON NORMALS: Soft to palpation and No hepatosplenomegaly present AUSCULTATION: Yes normoactive bowel sounds PALPATION: Yes Soft to palpation, No Tenderness to palpation present (GI), No Guarding due to palpation present (GI) and Yes No hepatosplenomegaly present Extremity: COMMON NORMALS: normal to inspection, capillary refill normal, no clubbing, cyanosis or edema, no calf tenderness and no pedal edema Neuro: SENSORIUM/ORIENTATION: Yes oriented to person, Yes oriented to place and Yes oriented to time Skin: COMMON NORMALS: no rashes or lesions noted GENERAL SKIN EXAM: no rashes or lesions noted Course Vital Signs: Vital signs: Vital Signs Temperature 97.8 F 05/02/25 11:11 Pulse Rate 97 05/02/25 11:11 Respiratory Rate 18 05/02/25 12:06 Blood Pressure 167/96 05/02/25 11:11 Pulse Oximetry 98 05/02/25 12:06 Oxygen Delivery Me thod Room Air 05/02/25 12:06 MDM - Abdominal Pain Medical Decision Making Signs of having recently passed a stone on the CT. Patient also has both white and red blood cells in equal amounts on her UA. Suspect she did pass the stone and she also has mild cystitis. Leukocytosis a white count of 16,000. We will start her on cefdinir 300 twice daily for 7 days also gave her hydrocodone to use as needed follow-up with her primary care doctor Medical Records I reviewed the patient's medical records. Lab Data I reviewed the patient's lab results. 05/02/25 12:08 05/02/25 12:08 Labs/Radiology: Radiology Impressions Abdomen/Pelvis CT 05/02/25 11:36 IMPRESSION: 1. Induration with perinephric edema about the RIGHT kidney, RIGHT renal pelvis, and proximal ureter suspicious for recently passed stone and/or pyelonephritis. Mild dilatation of the RIGHT renal pelvis. 2. No calculi visualized in the bladder. 3. No hydronephrosis in the LEFT kidney. 4. Hepatomegaly. 5. Small esophageal hiatal hernia. Notified Wander Aguilera DO at 05/02/2025 12:16 PM. Laboratory Results WBC 16.17 10^3/uL (3.29-11.43) H 05/02/25 12:08 RBC 4.41 10^6/uL (3.85-5.65) 05/02/25 12:08 Hgb 12.20 g/dL (11.27-16.99) 05/02/25 12:08 Hct 38.6 % (36-47) 05/02/25 12:08 MCV 87.5 fl (85-98) 05/02/25 12:08 MCH 27.7 pg (27-33) 05/02/25 12:08 MCHC 31.6 g/dL (30-55) 05/02/25 12:08 RDW 14.6 % (12.1-15.1) 05/02/25 12:08 Plt Count 362 10^3/cmm (157-399) 05/02/25 12:08 MPV 9.4 fL (7.4-10.4) 05/02/25 12:08 Neut % (Auto) 85.8 % 05/02/25 12:08 Lymph % (Auto) 9.0 % 05/02/25 12:08 [place] % (Auto) 3.6 % 05/02/25 12:08 Eos % (Auto) 0.1 % 05/02/25 12:08 Baso % (Auto) 0.3 % 05/02/25 12:08 Neut # (Auto) 13.88 10^3/uL (1.8-7.7) H 05/02/25 12:08 Lymph # (Auto) 1.5 10^3/uL (0.8-4.8) 05/02/25 12:08 [place]ach # (Auto) 0.6 10^3/uL (0.2-0.9) 05/02/25 12:08 Eos # (Auto) 0.0 10^3/uL (0.0-0.8) 05/02/25 12:08 Baso # (Auto) 0.1 10^3/uL (0.0-0.1) 05/02/25 12:08 Nucleated RBC % (auto) 0 % 05/02/25 12:08 Nucleated RBCs # 0.0 /100WBC 05/02/25 12:08 Sodium 136 mmol/L (136-145) 05/02/25 12:08 Potassium 3.6 mmol/L (3.5-5.1) 05/02/25 12:08 Chloride 100 mmol/L (98-107) 05/02/25 12:08 Carbon Dioxide 21 mmol/L (22-29) L 05/02/25 12:08 Anion Gap 18.6 (5-19) 05/02/25 12:08 BUN 16 mg/dL (6-20) 05/02/25 12:08 Creatinine 0.9 mg/dL (0.5-0.9) 05/02/25 12:08 GFR Calculation 68.7 mL/min (90-130) L 05/02/25 12:08 Glucose 233 mg/dL (65-115) H 05/02/25 12:08 Calculated Osmolality 291 mOsm/kg (285-295) 05/02/25 12:08 Calcium 9.0 mg/dL (8.5-10.5) 05/02/25 12:08 Total Bilirubin 0.3 mg/dL (0.15-1.2) 05/02/25 12:08 AST 10 U/L (0-32) 05/02/25 12:08 ALT 13 U/L (0-33) 05/02/25 12:08 Alkaline Phosphatase 121 U/L (35-105) H 05/02/25 12:08 Total Protein 7.5 g/dL (6.6-8.7) 05/02/25 12:08 Albumin 3.9 g/dL (3.5-5.2) 05/02/25 12:08 Globulin 3.6 g/dL (1.3-4.6) 05/02/25 12:08 Urine Color Yellow (Yellow) 05/02/25 11:45 Urine Appearance Clear (CLEAR) 05/02/25 11:45 Urine pH 7.0 (5-7) 05/02/25 11:45 Ur Specific [place] 1.021 (1.005-1.030) 05/02/25 11:45 Urine Protein 1+ (Negative) A 05/02/25 11:45 Urine Glucose (UA) 2+ (Normal) H 05/02/25 11:45 Urine Ketones 1+ (Negative) H 05/02/25 11:45 Urine Blood 2+ (Negative) A 05/02/25 11:45 Urine Nitrate Negative (Negative) 05/02/25 11:45 Urine Bilirubin Negative (Negative) 05/02/25 11:45 Urine Urobilinogen 0.2 mg/dL (Negative) 05/02/25 11:45 Ur Leukocyte Esterase 2+ (Negative) A 05/02/25 11:45 Urine RBC 51-100 /hpf (0-2) H 05/02/25 11:45 Urine WBC 51-100 /hpf (0-5) H 05/02/25 11:45 Ur Squamous Epith Cells 0-5 /hpf (0-5) 05/02/25 11:45 Amorphous Sediment Not Reportable 05/02/25 11:45 Urine Bacteria 3+ /hpf (NONE) H 05/02/25 11:45 Hyaline Casts 2.46 /lpf 05/02/25 11:45 Other Casts Wbc cast /lpf 05/02/25 11:45 All radiology interpretation(s) finalized by discharge Discharge Plan Discharge Patient Disposition: Home Clinical Impression: Calculus of kidney, Cystitis Condition: Stable Prescriptions: New hydrocodone-acetaminophen 5-325 mg tablet 1 tab PO Q6H PRN (Reason: pain) Qty: 15 0RF cefdinir 300 mg capsule 300 mg PO BID 10 Days Qty: 20 0RF No Action budesonide-formoterol [Symbicort] 160-4.5 mcg/actuation HFA aerosol inhaler 1 inh inhalation BID magnesium 500 mg PO DAILY Trulicity 1.5 mg/0.5 mL pen injector See Rx Instructions .ROUTE .COMPLEX Patient Comments: .weekly Rx Instructions: 1.5 mg subcutaneously weekly sertraline 50 mg tablet 50 mg PO DAILY meloxicam 15 mg tablet 15 mg PO DAILY hydrochlorothiazide 25 mg tablet 25 mg PO DAILY losartan 50 mg tablet 50 mg PO DAILY albuterol sulfate 90 mcg/actuation aerosol powdr breath activated 2 inh inhalation Q4H PRN (Reason: Shortness Of Breath) fluticasone propionate [Flonase Allergy Relief] 50 mcg/actuation spray,suspension 2 spray intranasal DAILY Rx Instructions: administer into each nostril pioglitazone [Actos] 30 mg tablet 30 mg PO DAILY (DME) Space Chamber Spacer See Rx Instructions .Route Rx Instructions: As directed (DME) blood-glucose meter [OneTouch Ultra2 Meter] Misc See Rx Instructions .Route Rx Instructions: As directed (DME) OneTouch Verio test strips Strip See Rx Instructions .Route Rx Instructions: As directed cetirizine 10 mg tablet 10 mg PO DAILY metformin 1,000 mg tablet 1,000 mg PO BID montelukast 10 mg PO DAILY Emgality Syringe 120 mg/mL syringe 120 mg SUBCUT ONCE Qty: 1 5RF ropinirole 0.5 mg tablet 0.5 mg PO PRN PRN (Reason: Muscle Spasm) Rx Instructions: TAKE 1 TABLET BY MOUTH TWICE DAILY NEEDED FOR MUSCLE SPASM famotidine 20 mg tablet 20 mg PO BID azelastine 137 mcg (0.1 %) spray,non-aerosol 2 spray INTRANASAL DAILY Discharge Orders: Discharge ED (Routine); Ordered 05/02/25 Ordered By: Wander Aguilera Referrals: Joseline Bravo MD [Primary Care Provider, Family Practice] Discharge Diet: Usual diet Discharge Activity: Increase activity as tolerated Patient Instructions: Opioid Safety, Pain Management Activity Restrictions/Additional Instructions: Thank you for choosing [facility] for your healthcare needs today. It is very important that you follow up as instructed or that you return to the Emergency Department should you have concerns or if your condition changes or worsens in any way. You were seen emergency room with flank pain. Results of your CT scan that appears you had passed a kidney stone while in the emergency room is also evidence of mild infection recommend you start on oral antibiotics 1 pill twice a day for 7 days. Also gave you pain medications to use. Follow-up with primary care doctor or return to the emergency room if your symptoms worsen or recur. Print Language: Chinese Coding Level of Care Code ED Architectural Sales Consultant for Daina Cook
--- NOTE | 2025-05-02 11:36 | CT_ITS ---
WS: [id number] CT ABDOMEN PELVIS TECHNIQUE: Noncontrast CT of the abdomen and pelvis with coronal and sagittal reformatted images. CLINICAL INFORMATION: flank pain COMPARISON: None. DLP: 1249.[address] scans at [facility] use at least one of these dose optimization techniques: automated exposure control; mA and/or kV adjustment per patient size (includes targeted exams where dose is matched to clinical indication); or iterative reconstruction. FINDINGS: Mild dilatation RIGHT renal pelvis with perinephric edema and induration about the RIGHT kidney. Induration and inflammatory changes about the RIGHT renal pelvis and proximal ureter. This extends along the proximal third ureter. No visualized obstructing renal or ureteral calculi. No calculi in the bladder visualized. Recommend correlation for recently passed calculus. No hydronephrosis in the LEFT kidney. Normal RIGHT adrenal gland. Nodular thickening LEFT adrenal gland. Hepatomegaly. Calcified nodule RIGHT lower lobe. Normal noncontrast pancreas. Tiny esophageal hernia. Mild aortic calcification. Tiny fat-containing umbilical hernia. Mild lumbar curve. Sigmoid diverticulosis. Normal appendix in the RIGHT lower quadrant. CT/CT kidney stone [id number] IMPRESSION: 1. Induration with perinephric edema about the RIGHT kidney, RIGHT renal pelvi s, and proximal ureter suspicious for recently passed stone and/or pyelonephrit is. Mild dilatation of the RIGHT renal pelvis. 2. No calculi visualized in the bladder. 3. No hydronephrosis in the LEFT kidney. 4. Hepatomegaly. 5. Small esophageal hiatal hernia. Notified Wander Aguilera DO at 05/02/2025 12:16 PM.
[2025-05-02 12:06] VITALS: RESP 18; O2SAT 98
[2025-05-02 12:15] LABS: Basophils # 0.1 10^3/uL (0.0-0.1); Basophils % 0.3 %; Eosinophils % 0.1 %; Hematocrit 38.6 % (36-47); Lymphocytes # 1.5 10^3/uL (0.8-4.8); Mean Corpuscular HGB Conc 31.6 g/dL (30-55); Mean Corpuscular Hemoglobin 27.7 pg (27-33); Mean Corpuscular Volume 87.5 fl (85-98); Mean Platelet Volume 9.4 fL (7.4-10.4); Monocytes # 0.6 10^3/uL (0.2-0.9); Monocytes % 3.6 %; Neutrophils # 13.88 10^3/uL (1.8-7.7); Neutrophils % 85.8 %; Nucleated Red Blood Cells % 0 %; Platelet Count 362 10^3/cmm (157-399); Red Blood Count 4.41 10^6/uL (3.85-5.65); Red Cell Distribution Width 14.6 % (12.1-15.1); White Blood Count 16.17 10^3/uL (3.29-11.43)
[2025-05-02 12:19] LABS: Bilirubin Urine Negative (Negative); Blood Urine 2+ (Negative); Glucose Urine UA 2+ (Normal); Ketones Urine 1+ (Negative); Leukocyte Esterase Urine 2+ (Negative); Nitrate Urine Negative (Negative); Protein Urine 1+ (Negative); Specific Gravity, Urine 1.021 (1.005-1.030); Urine Appearance Clear (CLEAR); Urine Color Yellow (Yellow); Urobilinogen Urine 0.2 mg/dL (Negative)
[2025-05-02 12:24] LABS: Add Urine Microscopic? YES; Bacteria Urine 3+ /hpf; Hyaline Casts Urine 2.46 /lpf; RBC Urine 51-100 /hpf (0-2); Squamous Epithelial Cell Urine 0-5 /hpf (0-5); WBC Urine 51-100 /hpf (0-5)
[2025-05-02 12:29] LABS: Alanine Aminotransferase 13 U/L (0-33); Albumin Level 3.9 g/dL (3.5-5.2); Alkaline Phosphatase 121 U/L (35-105); Anion Gap 18.6 (5-19); Aspartate Amino Transferase 10 U/L (0-32); Blood Urea Nitrogen 16 mg/dL (6-20); Carbon Dioxide 21 mmol/L (22-29); Chloride 100 mmol/L (98-107); Globulin 3.6 g/dL (1.3-4.6); Glomerular Filtration Rate 68.7 mL/min (90-130); Glucose 233 mg/dL (65-115); Osmolality Calculated 291 mOsm/kg (285-295); Potassium 3.6 mmol/L (3.5-5.1); Sodium 136 mmol/L (136-145); Total Bilirubin 0.3 mg/dL (0.15-1.2); Total Protein 7.5 g/dL (6.6-8.7)
[2025-05-02] MEDS: ketorolac 60 mg/2 mL INJ IM (12:37)
[2025-05-02] MEDS: oxyCODONE-APAP 10-325 mg Tablet 1 TAB PO (12:37)
[2025-05-02 12:45] LABS: UA Slide Review UA Slide Review Perf
[2025-05-02 12:46] LABS: Add Urine Culture? Yes; Other Casts Urine WBC CAST /lpf
[2025-05-02] MEDS: cefTRIAXone 1,000 mg SDV 1000 MG IVP (13:17)
[2025-05-02 13:24] VITALS: BP 150/94; PULSE 76; O2SAT 98
== END 2025-05-02 13:25 | disposition home or self-care (01) ==
PROVIDERS: Emergency Provider Family Medicine; PCP Family Medicine
DX: N20.0 Calculus of kidney (principal); N30.90 Cystitis, unspecified without hematuria; Z79.84 Long term (current) use of oral hypoglycemic drugs; E11.9 Type 2 diabetes mellitus without complications
CPT/HCPCS: 36415; 74176; 80053; 81001; 85025; 87077; 87086; 87186; 96372; 96374; 99285; J0696; J1885; J9999

== ENCOUNTER 2025-05-13 05:00 | Outpatient (RCR) | payer MEDICAID, SELFPAY | END 2025-06-12 23:59 | disposition home or self-care (01) | LOC: MPT 05:00 | PROVIDERS: PCP Nurse Practitioner; Visit Provider Anesthesiology Pain Medicine | DX: M54.2 Cervicalgia (principal); G89.29 Other chronic pain | CPT/HCPCS: 97110; 97161; 97530 ==

== ENCOUNTER → 2025-05-14 09:59 | Outpatient (BNVA) | payer MEDICAID, SELFPAY | PROVIDERS: PCP Family Medicine; Visit Provider Nurse Practitioner | DX: N39.0 Urinary tract infection, site not specified (principal) | CPT/HCPCS: 81000; 87086 ==

== ENCOUNTER 2025-05-26 10:12 | Outpatient (CLI) | payer MEDICAID, SELFPAY ==
--- NOTE | 2025-05-26 10:18 | MM_ITS ---
WS: [id number] BILATERAL 3D TOMOSYNTHESIS DIGITAL SCREENING MAMMOGRAPHY WITH CAD CLINICAL INFORMATION: SCREENING HISTORY: Screening mammogram. No current complaints. COMPARISON: 2023 TECHNIQUE: Bilateral CC and MLO views. FINDINGS: Scattered fibroglandular densities bilaterally. No suspicious focal mass, asymmetry, calcifications, or architectural distortion. No evidence of malignancy. Incidental punctate and lucent centered calcifications bilaterally MM/MM scr BI tomosynthesis [id number] IMPRESSION: DENSITY: There are scattered areas of fibroglandular density. BI-RADS: 2 - Benign. FOLLOW UP: 1 Year Follow-up Recommend return to annual screening mammography.
== END 2025-05-26 10:13 | disposition home or self-care (01) ==
LOC: RAD 10:13
PROVIDERS: PCP Nurse Practitioner; Visit Provider Nurse Practitioner
DX: Z12.31 Encounter for screening mammogram for malignant neoplasm of breast (principal); R92.323 Mammographic fibroglandular density, bilateral breasts; R92.1 Mammographic calcification found on diagnostic imaging of breast
CPT/HCPCS: 77063; 77067

== ENCOUNTER → 2025-06-09 12:31 | Outpatient (BNVA) | payer MEDICAID, SELFPAY | PROVIDERS: PCP Nurse Practitioner; Visit Provider Internal Medicine | DX: E11.9 Type 2 diabetes mellitus without complications (principal); E27.9 Disorder of adrenal gland, unspecified; M54.9 Dorsalgia, unspecified; E66.9 Obesity, unspecified; I10 Essential (primary) hypertension | CPT/HCPCS: 36415; 80053; 82088; 84244 ==

== ENCOUNTER 2025-06-11 08:42 | Outpatient (CLI) | payer MEDICAID, SELFPAY ==
[2025-06-11 13:04] LABS: Creatinine 24 Hour Urine 2070.5 mg/dL (601-1689); Total Volume Urine 5050 ml
== END 2025-06-11 08:43 | disposition home or self-care (01) ==
PROVIDERS: PCP Nurse Practitioner; Visit Provider Internal Medicine
DX: M54.9 Dorsalgia, unspecified (principal); E11.9 Type 2 diabetes mellitus without complications; E66.9 Obesity, unspecified
CPT/HCPCS: 82384; 82530; 82570

== ENCOUNTER 2025-06-13 05:00 | Outpatient (RCR) | payer MEDICAID, SELFPAY | END 2025-07-13 23:59 | disposition home or self-care (01) | LOC: MPT 05:00 | PROVIDERS: PCP Nurse Practitioner; Visit Provider Anesthesiology Pain Medicine | DX: M54.2 Cervicalgia (principal); G89.29 Other chronic pain | CPT/HCPCS: 97110; 97140; 97530 ==

== ENCOUNTER 2025-07-14 05:00 | Outpatient (RCR) | payer MEDICAID, SELFPAY | END 2025-08-12 23:59 | disposition home or self-care (01) | LOC: MPT 05:00 | PROVIDERS: PCP Nurse Practitioner; Visit Provider Anesthesiology Pain Medicine | DX: M54.2 Cervicalgia (principal); G89.29 Other chronic pain | CPT/HCPCS: 97110; 97530 ==

== ENCOUNTER 2025-07-16 15:07 | Outpatient (CLI) | payer MEDICAID, SELFPAY ==
[2025-07-16] MEDS: iohexol 350 mg/mL 500 mL Btl (per mL) IV (15:26)
--- NOTE | 2025-07-16 15:45 | CT_ITS ---
WS: [id number] CT adrenals with and without contrast. HISTORY: LEFT adrenal nodule. Noncontrast 2 mm imaging is performed through the abdomen with attention to the adrenal glands. Additional 1 minute and 15 minute delayed images are then performed through the adrenal glands. CONTRAST: Omnipaque 350; 95 mL IV. DLP: 2733.[address] scans at [facility] use at least one of these dose optimization techniques: automated exposure control; mA and/or kV adjustment per patient size (includes targeted exams where dose is matched to clinical indication); or iterative reconstruction. COMPARISON: Noncontrast CT 05/02/2025 Lower thorax: Clear. Heart size is normal. Small hiatal hernia. ADRENAL GLANDS. RIGHT: Normal RIGHT adrenal gland. LEFT: Mild diffuse enlargement and thickening of the LEFT adrenal gland. The limbs measure up to 7 mm. There is no mass or area of decreased enhancement. There is no fat-containing mass mass or nodule. There is diffuse thickening of the adrenal gland with enhancement. No adenoma. Liver is measuring top normal size with diffuse hepatic steatosis. No mass or intrahepatic duct dilatation. Normal portal vein. Normal gallbladder and spleen. Normal pancreas. Mild atherosclerosis aorta. No GI tract obstruction. Partially visualized appendix is normal. No ascites or adenopathy. No destructive bone lesions. CT/CT abdomen wo/w con [id number] IMPRESSION: 1. LEFT adrenal hyperplasia. No adenoma or mass. No macroscopic fat. Adrenal l imbs measure 7 mm. Hyperplasia is typically nonfunctioning. Can also be seen wi th [place]'s syndrome or primary aldosteronism. No adenoma. 2. Normal RIGHT adrenal gland. 3. Hepatic steatosis.
== END 2025-07-16 15:08 | disposition home or self-care (01) ==
LOC: RAD 15:09
PROVIDERS: PCP Nurse Practitioner; Visit Provider Internal Medicine
DX: E27.9 Disorder of adrenal gland, unspecified (principal)
CPT/HCPCS: 74170

== ENCOUNTER 2025-09-11 07:44 | Outpatient (RCR) | payer MEDICAID, SELFPAY | END 2025-09-12 23:59 | disposition home or self-care (01) | LOC: MPT 07:44 | PROVIDERS: PCP Nurse Practitioner; Visit Provider Anesthesiology Pain Medicine | DX: M54.2 Cervicalgia (principal); G89.29 Other chronic pain | CPT/HCPCS: 97110; 97530 ==

== ENCOUNTER 2025-10-07 08:42 | Outpatient (RCR) | payer MEDICAID, SELFPAY | END 2025-10-12 23:59 | disposition home or self-care (01) | LOC: MPT 08:42 | PROVIDERS: PCP Nurse Practitioner; Visit Provider Anesthesiology Pain Medicine | DX: M54.2 Cervicalgia (principal); G89.29 Other chronic pain | CPT/HCPCS: 97110; 97530 ==

== ENCOUNTER → 2025-10-14 08:46 | Outpatient (BNVA) | payer MEDICAID, SELFPAY | PROVIDERS: PCP Nurse Practitioner; Referring Provider Nurse Practitioner; Visit Provider Nurse Practitioner | DX: I10 Essential (primary) hypertension (principal); O24.419 Gestational diabetes mellitus in pregnancy, unspecified control | CPT/HCPCS: 80053; 83036; 85025 ==

== ENCOUNTER → 2025-11-03 09:13 | Outpatient (BNVA) | payer MEDICAID, SELFPAY | PROVIDERS: PCP Nurse Practitioner; Visit Provider Nurse Practitioner | DX: R68.89 Other general symptoms and signs (principal); J02.9 Acute pharyngitis, unspecified | CPT/HCPCS: 87071; 87400; 87426; 87880 ==

== ENCOUNTER 2025-11-12 07:55 | Outpatient (RCR) | payer MEDICAID, SELFPAY | END 2025-11-12 23:59 | disposition home or self-care (01) | LOC: MPT 07:55 | PROVIDERS: PCP Nurse Practitioner; Visit Provider Anesthesiology Pain Medicine | DX: M54.2 Cervicalgia (principal); G89.29 Other chronic pain | CPT/HCPCS: 97110; 97530 ==